=== PATIENT | male | born 1970 | race Caucasian/White ===

== ENCOUNTER → 2017-06-09 | Outpatient (CLI) | payer OTHER ==
--- NOTE | 2017-06-09 17:00 | CONS ---
CONSULTATION DATE OF SERVICE: 06/09/2017 47-year-old gentleman who has been evaluated [facility] the [facility] for difficulties to initiate sleep and multiple awakenings from sleep. HISTORY OF PRESENT ILLNESS/SLEEP WAKE EVALUATION: Patient has problem related to his sleep for many years. SLEEP SCHEDULE: Presently his sleep schedule from around 9:00 p.m. until 5 or 6:00 am. FALLING ASLEEP: The patient has problem with falling asleep. He is watching TV. If he cannot fall asleep in 1 1/2 hours he is putting TV on and watching TV. DURING SLEEP: If he is able to sleep, he wakes up from sleep up to 10 times and several times he has episodes of nocturia. He has episodes of panic attacks also. DURING THE DAY/SLEEP WAKE EVALUATION: In the morning, he wakes up tired and feels sleepy during the day. [place] Sleepiness Scale is 9 and this is with the 3 or 4 cups of coffee during the day. No history of hypnagogic hallucinations, sleep paralysis or cataplexy. PAST MEDICAL HISTORY: Positive for psoriasis. Also takes iron, history of iron deficiency anemia for 1 year. He has history of trauma in the face in 2000. PAST SURGICAL HISTORY: Multiple facial surgeries after trauma in 2000, gastric bypass surgery, cervical disc fusion C5-C6 and surgery for carpal tunnel syndrome, bilateral. MEDICATIONS: Folic acid, ferrous sulfate, Singulair, Pristiq, gabapentin. SOCIAL HISTORY: Positive for smoking for about on and off 10 years, 1 pack a day. Presently, the patient smokes for last 3 years. Alcohol consumption none. FAMILY HISTORY: Hypertension, heart problems, fibromyalgia, arthritis, asthma, insomnia, anemia. REVIEW OF SYMPTOMS: Multiple awakenings from sleep. Difficulties to initiate sleep, itching of the arms and head. PHYSICAL EXAM: gentleman without distress, BP 127/87, HR 73, RR 16, height 5 feet 9 inches, weight 215.6, BMI 31.7, temperature 97.9. Oxygen saturation room air 95%. During physical exam, some asymmetry of the face after face surgeries secondary to trauma. Scratching of the skin on the head and arms. Oropharynx small oropharyngeal air space, low position of soft palate, wide pillars. Some restriction of nasal breathing. Abdomen slightly obese. Neck Supple, no JVD. Thyroid is not palpable. LUNGS Clear to percussion and to auscultation. Good air exchange. No wheezing or rhonchi. HEART S1, S2 regular. No murmurs, gallops, or rubs. ABDOMEN: Obese. Soft and nontender. Bowel sounds are present. No organomegaly appreciated. EXTREMITIES No clubbing or cyanosis. SOD STRIPPER Awake, alert, and oriented X3. Cranial nerves 2 to 7 intact. There is no fasciculation or atrophy. noted. No focal deficits observed. IMPRESSION: 1. Multiple awakenings from sleep with nocturia. Low position of soft palate. Restriction of nasal breathing, obstructive sleep apnea/hypopneas and a wide neck 17 and 0.5 inches daytime sleepiness, obstructive sleep apnea-hypopnea syndrome. 2. Difficulties to initiate sleep. Psychophysiological insomnia. 3. History of iron deficiency anemia. 4. History of psoriasis. 5. Obesity BMI 31.7. 6. Problem with the right hip, preparing for a right hip total replacement. 7. Status post gastric bypass surgery. 8. Status post cervical disc fusion in the level of C5-C6. 9. Status post carpal tunnel syndrome treatment to both hands. PLAN: 1. Polysomnography for evaluation of patient's breathing during sleep. 2. CPAP/BiPAP titration if sleep study confirms obstructive sleep apnea-hypopnea syndrome. 3. Preferable position during sleep on the side. 4. No driving if patient feels any sleepiness. Patient is aware of civil and criminal liability for unsafe driving. 5. I will see patient for follow up visit to explain results of testing and following plan. 6. Psychophysiological techniques for treatment of insomnia stimulus control, paradoxical intention, worry time, exposure to as much as possible bright light in the morning and no bright light in the evening. Thank you very much for referring this patient for consultation. Sincerely, Rolando Guillory MD, PhD, FAASM Diplomat of [place] [employer] [place] [employer] Alum Operator of [facility] [place] MMODL / IJN: [id number] /
== END | disposition home or self-care (01) ==
LOC: SLEEP 14:44
PROVIDERS: ATTEND Internal Medicine
DX: G47.33 Obstructive sleep apnea (adult) (pediatric) (principal); F51.04 Psychophysiologic insomnia; E66.9 Obesity, unspecified; Z86.2 Personal history of diseases of the blood and blood-forming organs and certain disorders involving the immune mechanism; Z87.2 Personal history of diseases of the skin and subcutaneous tissue; Z68.31 Body mass index [BMI] 31.0-31.9, adult; Z98.84 Bariatric surgery status; Z98.1 Arthrodesis status; Z86.69 Personal history of other diseases of the nervous system and sense organs; Z87.891 Personal history of nicotine dependence; Z79.899 Other long term (current) drug therapy
CPT/HCPCS: 99211

== ENCOUNTER → 2017-06-22 | Outpatient (CLI) | payer OTHER ==
[2017-06-22 12:03] LABS: INR 1.1 (<1.2); Partial Thromboplastin Time 25.8 sec (22.0-30.0); Prothrombin Time 10.5 sec (9.0-12.0)
[2017-06-22 12:05] LABS: Anisocytosis Slight; HCT 50.5 % (39.0-53.0); HGB 16.4 gm/dL (13.0-17.5); MCH 26.8 pg (25.0-35.0); MCHC 32.4 g/dL (31.0-37.0); MCV 82.9 fL (80.0-100.0); Mean Platelet Volume 7.5; Microcytosis Slight; Platelet Count 234 k/uL (150-450); RDW 17.1 % (11.5-15.5); WBC 8.4 k/uL (3.8-10.6)
[2017-06-22 12:06] LABS: ALT 29 U/L (21-72); AST 28 U/L (17-59); Albumin 4.3 g/dL (3.5-5.0); Alkaline Phosphatase 108 U/L (38-126); Anion Gap 10 mmol/L; Blood Urea Nitrogen 15 mg/dL (9-20); Calcium 9.5 mg/dL (8.4-10.2); Carbon Dioxide 24 mmol/L (22-30); Chloride 109 mmol/L (98-107); Glucose 98 mg/dL (74-99); Potassium 4.5 mmol/L (3.5-5.1); Sodium 143 mmol/L (137-145); Total Bilirubin 0.5 mg/dL (0.2-1.3); Total Protein 7.5 g/dL (6.3-8.2)
== END | disposition home or self-care (01) ==
LOC: LABPAT 11:14
PROVIDERS: ATTEND Orthopaedic Surgery
DX: Z01.812 Encounter for preprocedural laboratory examination (principal)
CPT/HCPCS: 36415; 80053; 85027; 85610; 85730; 87070

== ENCOUNTER 2017-07-05 09:31 | Inpatient (IN) | payer OTHER ==
[2017-06-30 09:47] VITALS: BMI 30.1
[~2017-07-05 09:31] MED LIST: ACETAMINOPHEN TAB 500 MG TAB PO ONE; DEXAMETHASONE SOD PHOSPHATE 10 MG/ML 1 ML VIAL IV ONE; LIDOCAINE 1% 20 ML VIAL (10MG/ML) FOR IV START INTRADERMA PRN; MELOXICAM 7.5 MG TAB PO ONE; MIDAZOLAM 2 MG/2 ML VIAL IV PRN; ONDANSETRON 4 MG/2 ML VIAL IVP ONE; SCOPOLAMINE 1.5MG/72HR PATCH TRANSDERM ONE; TRANEXAMIC ACID 1,000 MG in SODIUM CHLORIDE 0.9% 50 ML IVPB ONE; ceFAZolin IN SWFI 2 GM/20 ML SYRINGE IVP ONE
[2017-07-05] MEDS ORDERED: LIDOCAINE 1% 20 ML VIAL (10MG/ML) FOR IV START INTRADERMA ONE (10:31)
[2017-07-05] MEDS: LACTATED RINGERS 1,000 ML IV SCH (10:31)
[2017-07-05] MEDS ORDERED: DIAZEPAM 5 MG TAB PO PRN (11:46)
[2017-07-05] MEDS ORDERED: ONDANSETRON 4 MG/2 ML VIAL IVP PRN (11:46)
[2017-07-05] MEDS ORDERED: MORPHINE SULFATE 4 MG/ML SYRINGE IVP PRN ×3 (11:46)
[2017-07-05] MEDS ORDERED: NALOXONE 0.4 MG/ML 1 ML VIAL IV PRN (11:46)
[2017-07-05] MEDS ORDERED: HYDROcodone/APAP 7.5-325MG 1 EACH TAB PO PRN (11:46)
[2017-07-05] MEDS ORDERED: MAGNESIUM HYDROXIDE 2,400 MG/10 ML CUP PO PRN (11:46)
[2017-07-05] MEDS ORDERED: MIDAZOLAM 2 MG/2 ML VIAL ONE (11:54)
[2017-07-05] MEDS ORDERED: LIDOCAINE 1% INJ 10MG/ML (20 ML MDV) ONE (11:54)
[2017-07-05] MEDS ORDERED: diphenhydrAMINE 50 MG/ML 1 ML VIAL ONE (11:54)
[2017-07-05] MEDS ORDERED: PROPOFOL 10 MG/ML 20 ML VIAL IV ONE (11:54)
[2017-07-05] MEDS ORDERED: fentaNYL (PF) 50 MCG/ML 2 ML AMP ONE (11:54)
[2017-07-05] MEDS ORDERED: HEPARIN SODIUM,PORCINE 10,000 UNIT/ML 1 ML VIAL ONE (11:54)
[2017-07-05] MEDS ORDERED: LACTATED RINGERS 1,000 ML BAG IV ONE (11:54)
[2017-07-05] MEDS: ROPIVACAINE 246.25 MG, EPINEPHrine 0.5 MG, KETOROLAC 30 MG, cloNIDine HCL/PF 80 MCG, WA... MISCELLANE ONE ×10 (12:21→13:16)
[2017-07-05] MEDS ORDERED: ceFAZolin 3,000 MG in SODIUM CHLORIDE 0.9% IRRIGATIO 3,000 ML IRRIGATION ONE (12:21)
[2017-07-05] MEDS ORDERED: LACTATED RINGERS 1,000 ML IV ONE ×2 (12:49→18:07)
--- NOTE | 2017-07-05 13:31 | P.OP ---
Date of Procedure: 07/05/17 Preoperative Diagnosis: Severe osteoarthritis right hip Postoperative Diagnosis: Severe osteoarthritis right hip Procedure(s) Performed: Right total hip arthroplasty with a direct anterior approach Implants: Jacobs and nephew Polarstem size 9 standard Jacobs [employer] Nephew R3, 3 hole acetabular shell, 58 mm Jacobs [employer] Nephew reflection 6.5 mm cancellus screw, 20 mm 2 Jacobs [employer]hew R3, XLPE 20 acetabular liner Jacobs & Nephew Oxinium femoral head 36 m, +12 All components were press-fit. The articulation is Oxinium on polyethylene. Anesthesia: spinal Surgeon: Chris Velasquez Showroom Sales Assistant #1: Neena Gregory Estimated Blood Loss (ml): 250 (125 mL returned with Cell Saver) Pathology: other (Femoral head) Condition: stable Disposition: PACU Indications for Procedure: After failure of conservative treatment we discussed the surgical and nonsurgical treatment options at length. Patient wishes to proceed with a total hip arthroplasty with a direct anterior approach. Complications specific to this procedure were discussed at length, including but not limited to infection, leg length discrepancy, dislocation, and nerve injury. Patient is aware of all these complications and informed consent was obtained Operative Findings: The operative findings are consistent with severe osteoarthritis of the right hip Description of Procedure: Patient was seen and evaluated in the preoperative area, consent was reviewed, and the surgical site was marked with a skin marker. Patient was then brought to the operating room and given prophylactic antibiotics intravenously. 1 g of Tranexamic acid was also given. A spinal anesthetic was administered by the anesthesia department. The patient was then placed on the [place] table with the bony prominences well-padded. The hip area was then prepped and draped in usual sterile fashion. A universal timeout was then performed, which confirmed the patient's name, surgical site, ALLERGIES, and procedure being performed. Next the incision site was located at 1 cm distal and 1 cm lateral to the anterior superior iliac spine. The skin and subcutaneous tissues were sharply incised. Incision was carefully dissected down to the fascia overlying the tensor fascia jud muscle. This fascia was then incised in line with the incision. Next, using blunt finger dissection, the tensor fascia jud muscle was dissected off its investing fascia. The muscle was then carefully retracted laterally with a cobra retractor over the lateral neck of the femur. Next, the circumflex vessels were identified and cauterized using the AquaMantis device. The anterior hip capsule was then exposed. The capsule was then opened and an inverted T fashion. Cobra retractors were then placed intracapsularly. The proximal femur was then visualized. The femoral neck was then osteotomized appropriate level above the lesser trochanter. Small amount of traction was placed with the [place] table. A small wedge of bone was then removed from the remaining femoral head. Next, using a corkscrew femoral head was easily removed from the acetabulum. On gross visual inspection, the femoral head had complete loss of articular cartilage in multiple periarticular osteophytes. Attention was then turned to the acetabulum. the acetabulum was exposed and any remaining labrum was excised. Sequential reaming of the acetabulum was performed using fluoroscopic guidance. When the appropriate size was reached, a trial was then placed. The position and fit of the trial was checked with fluoroscopy. The trial was then removed. Then, using fluoroscopic guidance, the final implant was impacted at 20 of anteversion and 40 of abduction, and fully seated in the acetabulum. 2 screws were then placed in the acetabulum. Again fluoroscopy was used to check position of the screws. Next, the liner was then impacted, with a 20 elevated liner located in the anterior superior quadrant. Component locking was confirmed. Attention was then directed to the femur. With the aid of the [place] table, the femur was externally rotated to approximately 130, extended, and abducted under the opposite leg. A side hook was then placed under the proximal femur, and the side hook elevator was used to elevate the proximal femur. Retractors were then placed. A capsular release was performed, as well as a release of the conjoined tendon, which afforded excellent visualization of the proximal femur. Next, a box osteotome was used to lateralize the proximal femur. A drapery sewer hand was then used to locate the femoral canal. Sequential broaching was then performed with appropriate size which afforded excellent fixation in the proximal femur. A trial was then placed with appropriate head and neck, and the hip was gently reduced with the aid of the [place] table. Fluoroscopy was then used to check position of the components, as well as to ensure equal leg lengths. The hip was then gently dislocated and the trials were then removed. Final implants were then impacted and the hip was again reduced. Final fluoroscopic x-rays confirmed that the components were in anatomic position, as well as equal leg lengths. The hip was also taken through range of motion, and found to be stable. The hip was then copiously irrigated with antibiotic solution with pulsatile lavage. The hip was then irrigated with Irrisept solution. The soft tissues were then injected with a ropivacaine solution, which consisted of 246.25 mg of ropivacaine, 0.5 mg of epinephrine, 30 mg of Toradol, 80 g of clonidine, and 48.45 mL of sterile water, for a total of 100 mL of fluid injected. A second dose of 1 g of Tranexamic acid was also given. the fascia was then closed with 2-0 strata fix suture. The subcutaneous tissue was closed with 3-0 Vicryl. The subcuticular tissue was closed with 3-0 strata fix suture. The skin was then closed with Dermabond glue and a sterile silver dressing. The patient was then transferred to the recovery room in stable condition. The mobile sales assistant ANTIONETTE Osorio was required due to the complexity of surgery, and the need for skilled surgical dental assistant for positioning, draping, exposure, retraction, and closure of the wound.
--- NOTE | 2017-07-05 13:59 | XR ---
EXAMINATION TYPE: XR Hip Limited RT DATE OF EXAM: 07/05/2017 COMPARISON: NONE HISTORY: Postop TECHNIQUE: One view submitted. FINDINGS: There is a prosthetic hip in near anatomic alignment. There is soft tissue edema and emphysema. IMPRESSION: 1. Postoperative change. Appears in near-anatomic alignment.
--- NOTE | 2017-07-05 14:03 | FL ---
EXAMINATION TYPE: FL guidance operating room DATE OF EXAM: 07/05/2017 HISTORY: Flouroscopy time 1 minute and 17 seconds of fluoroscopy provided. IMPRESSION: 1. Fluoroscopy time.
[2017-07-05] MEDS: MORPHINE SULFATE 4 MG/ML SYRINGE IV PRN ×4 (15:43→18:27)
--- NOTE | 2017-07-05 18:11 | XR ---
EXAMINATION TYPE: XR Hip Limited RT DATE OF EXAM: 07/05/2017 COMPARISON: NONE HISTORY: Hip surgery TECHNIQUE: Single view FINDINGS: There is a right hip prosthesis. Components appear in anatomic position. I see no complicat ing process. IMPRESSION: New right hip prosthesis.
[2017-07-05] MEDS: hydrOXYzine PAMOATE 25 MG CAP PO PRN (21:03)
[2017-07-05] MEDS: HYDROcodone/APAP 7.5-325MG 1 EACH TAB PO PRN (21:03)
[2017-07-05] MEDS: ceFAZolin IN SWFI 2 GM/20 ML SYRINGE IVP SCH (21:05)
[2017-07-05] MEDS: ASPIRIN 325 MG TAB PO SCH (21:06)
[2017-07-05] MEDS: SODIUM CHLORIDE 0.9% 1,000 ML IV SCH (21:08)
[2017-07-05] MEDS: SENNOSIDES-DOCUSATE SODIUM 1 EACH TAB PO SCH (22:20)
[2017-07-05] MEDS ORDERED: ALBUTEROL NEBULIZED 2.5 MG/3 ML INHALATION PRN (23:09)
[2017-07-05] MEDS: ZOLPIDEM 10 MG TAB PO SCH (23:31)
[2017-07-06] MEDS: MIRTAZAPINE 15 MG TAB PO SCH ×2 (00:47→20:21)
[2017-07-06] MEDS: SODIUM CHLORIDE 0.9% 1,000 ML IV SCH ×2 (03:39→21:12)
[2017-07-06] MEDS: ceFAZolin IN SWFI 2 GM/20 ML SYRINGE IVP SCH (03:40)
[2017-07-06] MEDS: hydrOXYzine PAMOATE 25 MG CAP PO PRN ×2 (03:42→10:17)
[2017-07-06] MEDS: HYDROcodone/APAP 7.5-325MG 1 EACH TAB PO PRN ×4 (03:43→20:24)
[2017-07-06] MEDS: LACTATED RINGERS 1,000 ML IV SCH ×2 (04:01→22:07)
[2017-07-06] MEDS: DIAZEPAM 5 MG TAB PO PRN ×2 (07:34→15:35)
[2017-07-06] MEDS: ASPIRIN 325 MG TAB PO SCH ×2 (07:35→20:20)
[2017-07-06] MEDS: DESVENLAFAXINE SUCCINATE 50 MG TAB.ER.24H PO SCH (07:35)
[2017-07-06] MEDS: FOLIC ACID 1 MG TAB PO SCH ×2 (07:36→20:20)
[2017-07-06] MEDS: FERROUS SULFATE 325 MG TAB PO SCH ×2 (07:36→20:20)
[2017-07-06] MEDS: GABAPENTIN 400 MG CAP PO SCH ×3 (07:36→20:21)
[2017-07-06] MEDS: MELOXICAM 7.5 MG TAB PO SCH (07:36)
[2017-07-06] MEDS: MULTIVITAMINS, THERA 1 EACH TAB PO SCH (07:38)
[2017-07-06 07:52] LABS: Anisocytosis Slight; Basophils % (A) 0 %; Eosinophils # (A) 0.1 k/uL (0-0.7); Eosinophils % (A) 1 %; HCT 41.7 % (39.0-53.0); Lymphocytes # (A) 1.5 k/uL (1.0-4.8); Lymphocytes % (A) 12 %; MCH 27.8 pg (25.0-35.0); MCHC 33.1 g/dL (31.0-37.0); Mean Platelet Volume 7.6; Monocytes # (A) 0.6 k/uL (0-1.0); Monocytes % (A) 5 %; Neutrophils # (A) 10.2 k/uL (1.3-7.7); Neutrophils % (A) 82 %; Platelet Count 190 k/uL (150-450); RBC 4.97 m/uL (4.30-5.90); RDW 16.2 % (11.5-15.5); WBC 12.5 k/uL (3.8-10.6)
[2017-07-06 08:02] LABS: HGB 13.8 gm/dL (13.0-17.5)
--- NOTE | 2017-07-06 08:30 | P.PN ---
Subjective Progress Note Date: 07/06/17 This is a 47-year-old male who is status post right total hip arthroplasty. This is postoperative day #1. Patient is seen and evaluated at bedside with Dr. Chris Velasquez. Patient does complain of pain to the right hip. Patient states he has not had a chance to walk with physical therapy yet. Patient denies any fever/chills, numbness, weakness, tingling, abdominal pain, shortness of breath or chest pain. Objective - Vital Signs Vital signs: Vital Signs Temp 97.2 F L 07/05/17 23:00 Pulse 56 L 07/05/17 23:00 Resp 18 07/05/17 23:00 BP 115/56 07/05/17 23:00 Pulse Ox 95 07/05/17 23:00 Intake & Output 07/05/17 07/06/17 07/06/17 18:59 06:59 18:59 Intake Total 1901 950 Output Total 250 700 Balance 1651 250 Intake: IV 1901 Intake, IV Titration 650 Amount Sodium Chloride 0.9% 1, 650 000 ml @ 65 mls/hr IV . [id number] [facility] Rx#:[id number] Oral 300 Output: Urine 700 Estimated Blood Loss 250 - Exam Vital signs are stable. Patient is lying comfortably in bed in no acute distress and is alert and oriented 3. Calf is soft and nontender to palpation. Dressing is clean, dry, and intact. Patient has full foot and ankle motion without pain or difficulty. Neurovascular status and circulatory status are intact. - Labs CBC & Chem 7: 07/06/17 07:00 Labs: Abnormal Lab Results - Last 24 Hours (Table) 07/06/17 Range/Units 07:00 WBC 12.5 H (3.8-10.6) k/uL RDW 16.2 H (11.5-15.5) % Neutrophils # 10.2 H (1.3-7.7) k/uL Assessment and Plan (1) S/P total hip arthroplasty Current Visit: Yes Status: Acute Code(s): Z96.649 - PRESENCE OF UNSPECIFIED ARTIFICIAL HIP JOINT SNOMED Code(s): 038166802423 (2) Primary osteoarthritis of right hip Current Visit: Yes Status: Acute Code(s): M16.11 - UNILATERAL PRIMARY OSTEOARTHRITIS, RIGHT HIP SNOMED Code(s): 960336595 Plan: Continue routine postop care and pain control Continue antocoagulation Weightbearing as tolerated with a walker Leave dressing in place for 10-14 days Likely discharge to rehab Tuesday
[2017-07-06] MEDS: traMADol 50 MG TAB PO PRN ×3 (08:47→21:11)
--- NOTE | 2017-07-06 14:50 | CONS ---
CONSULTATION DATE OF CONSULTATION: 07/06/2017 REASON FOR CONSULTATION: Medical management requested by Dr. Velasquez. CONSULTATION: This is a pleasant 47-year-old patient who has undergone a right total hip arthroplasty. Had some postoperative pain in the joint. Has been out of bed for physical therapy. Did tolerate his lunch. No chest pain, no shortness of breath. No nausea, vomiting. Patient's chronic stable medical conditions include depression, anxiety, osteoarthritis in other joints including the right knee, left shoulder, insomnia, and COPD. REVIEW OF SYSTEMS: CONSTITUTIONAL: Tired. HEENT: None. RESPIRATORY: Occasional wheezing. CARDIOVASCULAR: None. GASTROINTESTINAL: None. GENITOURINARY: None. MUSCULOSKELETAL: Arthritic pain in different joints. HEMATOLOGICAL: None. LYMPHATICS: None. PSYCHIATRY: Depression, anxiety controlled. NEUROLOGICAL: Sleep disorder. PAST MEDICAL HISTORY: Depression, anxiety, osteoarthritis, insomnia, COPD. PAST SURGICAL HISTORY: Bariatric surgery, orthopedic surgery, tonsillectomy, facial reconstruction due to work accident. PSYCH HISTORY: Anxiety, depression, panic disorder. SOCIAL HISTORY: Smokes a pack a day for over 20 years. The patient is on disability. Lives with his sister. FAMILY HISTORY: Cancer, type unknown. HOME MEDICATIONS: 1. Vistaril 25 mg p.o. t.i.d. 2. Ambien 10 mg q.h.s. 3. Multivitamin tab p.o. daily. 4. Remeron 50 mg q.h.s. 5. [place] 7.5 one tablet q.6 p.r.n. 6. Neurontin 400 mg t.i.d. 7. Folic acid 1 mg b.i.d. 8. Iron 325 p.o. b.i.d. 9. Pristiq 100 mg p.o. daily. 10.Ventolin HFA 2 puffs q.6 p.r.n. ALLERGIES: SHELLFISH and TRAZODONE. PHYSICAL EXAMINATION: Temperature 96.3, pulse 76, respiration 18, blood pressure 120/60, pulse ox 96% on room air. GENERAL APPEARANCE: Average build, lying in bed, comfortable. EYES: Pupils equal, conjunctivae normal. HEENT: External nose and ear normal. Oral cavity normal. The patient has got some muscle dissymmetry, scarring on the forehead. NECK: JVD not raised. Mass not palpable. Respiratory effort normal. LUNGS: Slightly decreased breath sounds, CARDIOVASCULAR: First and second sounds are normal. No edema. ABDOMEN: Soft, nontender. Liver and spleen not palpable. LYMPHATIC: No lymph nodes palpable in neck or axillae. PSYCHIATRY: Alert and oriented x3. Mood and affect normal. NEUROLOGICAL: Pupils equal. Cranial nerves grossly intact. Power and sensation grossly intact. EXTREMITIES: Dressing over the right hip. INVESTIGATIONS: No blood work from today shows a white count of 12.5, hemoglobin 13.8. ASSESSMENT: 1. Right total hip arthroplasty. 2. Osteoarthritis probably other joints including the right knee, left shoulder, other joints. 3. Chronic insomnia, idiopathic. 4. Chronic obstructive pulmonary disease in a current smoker. 5. Depression, anxiety, not otherwise specified. 6. Chronic nicotine dependence, patient is a cigarette smoker. PLAN: Home medications are resumed. Pain control is in place. The patient will be given a nicotine patch. Patient should follow up with his family doctor upon discharge. Thank you, Dr. Velasquez. MMAURELIOL / MARIIAN: [id number] /
[2017-07-06] MEDS ORDERED: HYDROmorphone 2 MG TAB PO PRN ×2 (15:30→15:32)
[2017-07-06] MEDS ORDERED: HYDROmorphone 4 MG TABLET PO PRN (15:32)
[2017-07-06] MEDS: NICOTINE 21MG/24HR PATCH TRANSDERM SCH (18:37)
[2017-07-06] MEDS: SENNOSIDES-DOCUSATE SODIUM 1 EACH TAB PO SCH (20:21)
[2017-07-06] MEDS: ZOLPIDEM 10 MG TAB PO SCH (21:11)
[2017-07-07] MEDS: HYDROcodone/APAP 7.5-325MG 1 EACH TAB PO PRN ×4 (02:39→21:47)
[2017-07-07] MEDS: traMADol 50 MG TAB PO PRN ×3 (07:09→19:41)
[2017-07-07] MEDS: ASPIRIN 325 MG TAB PO SCH ×2 (07:24→20:28)
[2017-07-07] MEDS: DESVENLAFAXINE SUCCINATE 50 MG TAB.ER.24H PO SCH (07:24)
[2017-07-07] MEDS: MULTIVITAMINS, THERA 1 EACH TAB PO SCH (07:24)
[2017-07-07] MEDS: NICOTINE 21MG/24HR PATCH TRANSDERM SCH (07:24)
[2017-07-07] MEDS: FERROUS SULFATE 325 MG TAB PO SCH ×2 (07:24→20:28)
[2017-07-07] MEDS: FOLIC ACID 1 MG TAB PO SCH ×2 (07:25→20:28)
[2017-07-07] MEDS: SODIUM CHLORIDE 0.9% 1,000 ML IV SCH (07:25)
[2017-07-07] MEDS: MELOXICAM 7.5 MG TAB PO SCH (07:25)
--- NOTE | 2017-07-07 08:45 | P.PN ---
Subjective Progress Note Date: 07/07/17 This is a 47-year-old male who is status post right total hip arthroplasty. This is postoperative day #2. Patient states his pain is better controlled today and he has been up and walking with physical therapy. Patient denies any fever/chills, numbness, weakness, tingling, abdominal pain, shortness of breath or chest pain. Objective - Vital Signs Vital signs: Vital Signs Temp 99.6 F 07/07/17 02:51 Pulse 72 07/07/17 02:51 Resp 16 07/07/17 00:00 BP 137/66 07/07/17 02:51 Pulse Ox 97 07/07/17 02:51 Intake & Output 07/06/17 07/07/17 07/07/17 18:59 06:59 18:59 Output Total 0 Balance 0 Weight 95.254 kg Output: Stool 0 Other: # Voids 3 2 - Exam Vital signs are stable. Patient is lying comfortably in bed in no acute distress and is alert and oriented 3. Calf is soft and nontender to palpation. Dressing is clean, dry, and intact. Patient has full foot and ankle motion without pain or difficulty. Neurovascular status and circulatory status are intact. - Labs CBC & Chem 7: 07/06/17 07:00 Assessment and Plan (1) S/P total hip arthroplasty Current Visit: Yes Status: Acute Code(s): Z96.649 - PRESENCE OF UNSPECIFIED ARTIFICIAL HIP JOINT SNOMED Code(s): 616845118498 (2) Primary osteoarthritis of right hip Current Visit: Yes Status: Acute Code(s): M16.11 - UNILATERAL PRIMARY OSTEOARTHRITIS, RIGHT HIP SNOMED Code(s): 931616480 Plan: Continue routine postop care and pain control Continue antocoagulation with aspirin. Weightbearing as tolerated with a walker Leave dressing in place for 10-14 days Likely discharge to rehab Tuesday
[2017-07-07] MEDS: hydrOXYzine PAMOATE 25 MG CAP PO PRN ×2 (09:05→21:46)
[2017-07-07] MEDS: GABAPENTIN 400 MG CAP PO SCH ×3 (09:06→21:47)
--- NOTE | 2017-07-07 15:58 | PN ---
PROGRESS NOTE DATE OF SERVICE: 07/07/2017. PRESENTING COMPLAINT: Right hip surgery. INTERVAL HISTORY: The patient is status post right hip surgery. Pain is better. Tolerating a diet. No nausea, vomiting. Up with therapy. REVIEW OF SYSTEMS: Done for constitutional, cardiovascular, GI, pulmonary; relevant findings as above. CURRENT MEDICATIONS: Reviewed. PHYSICAL EXAMINATION: Temperature 98.5, pulse 82, respiration 16, blood pressure 114/62, pulse ox 98% on room air. GENERAL APPEARANCE: Sitting up, comfortable. EYES: Pupils equal. Conjunctivae normal. HEENT: External appearance of nose and ears normal. Oral cavity normal. NECK: JVD not raised. Mass not palpable. RESPIRATORY: Effort normal. LUNGS: Slightly decreased breath sounds. CARDIOVASCULAR: First and second sounds normal. No edema. ABDOMEN: Soft, nontender. Liver and spleen not palpable. PSYCHIATRY: Alert and oriented x3. Mood and affect normal. INVESTIGATIONS: Hemoglobin 13.8. ASSESSMENT: 1. Right total hip arthroplasty. 2. Primary osteoarthritis of the joints, including the right knee and left shoulder. 3. Chronic insomnia, idiopathic. 4. Chronic obstructive pulmonary disease in a current smoker. 5. Depression not otherwise specified. 6. Chronic nicotine dependence. Patient is a current cigarette smoker. PLAN: Patient is doing better. Continue current medication and treatment plan. MMODL / IJN: [id number] /
[2017-07-07] MEDS: SENNOSIDES-DOCUSATE SODIUM 1 EACH TAB PO SCH (20:28)
[2017-07-07] MEDS: MIRTAZAPINE 15 MG TAB PO SCH (20:28)
[2017-07-07] MEDS: ZOLPIDEM 10 MG TAB PO SCH (20:28)
[2017-07-08 01:00] VITALS: RESP 16
[2017-07-08] MEDS: SODIUM CHLORIDE 0.9% 1,000 ML IV SCH ×2 (03:02→19:30)
[2017-07-08] MEDS: LACTATED RINGERS 1,000 ML IV SCH (03:03)
[2017-07-08] MEDS: HYDROcodone/APAP 7.5-325MG 1 EACH TAB PO PRN ×4 (03:55→19:46)
[2017-07-08] MEDS: hydrOXYzine PAMOATE 25 MG CAP PO PRN (03:55)
[2017-07-08 07:35] LABS: Basophils % (A) 0 %; Eosinophils # (A) 0.3 k/uL (0-0.7); Eosinophils % (A) 4 %; HCT 38.5 % (39.0-53.0); HGB 12.6 gm/dL (13.0-17.5); Lymphocytes # (A) 1.6 k/uL (1.0-4.8); Lymphocytes % (A) 22 %; MCH 27.5 pg (25.0-35.0); MCHC 32.7 g/dL (31.0-37.0); MCV 83.9 fL (80.0-100.0); Mean Platelet Volume 7.3; Monocytes # (A) 0.6 k/uL (0-1.0); Monocytes % (A) 8 %; Neutrophils # (A) 4.5 k/uL (1.3-7.7); Neutrophils % (A) 64 %; Platelet Count 161 k/uL (150-450); RBC 4.59 m/uL (4.30-5.90); RDW 15.7 % (11.5-15.5)
[2017-07-08] MEDS: FERROUS SULFATE 325 MG TAB PO SCH (08:12)
[2017-07-08] MEDS: DESVENLAFAXINE SUCCINATE 50 MG TAB.ER.24H PO SCH (08:12)
[2017-07-08] MEDS: GABAPENTIN 400 MG CAP PO SCH ×2 (08:12→14:38)
[2017-07-08] MEDS: MULTIVITAMINS, THERA 1 EACH TAB PO SCH (08:12)
[2017-07-08] MEDS: ASPIRIN 325 MG TAB PO SCH (08:12)
[2017-07-08] MEDS: FOLIC ACID 1 MG TAB PO SCH (08:12)
[2017-07-08] MEDS: MELOXICAM 7.5 MG TAB PO SCH (08:13)
[2017-07-08] MEDS: NICOTINE 21MG/24HR PATCH TRANSDERM SCH (08:13)
--- NOTE | 2017-07-08 08:36 | P.DS ---
Providers Date of admission: 07/05/17 09:31 Expected date of discharge: 07/08/17 Attending physician: Chris Velasquez Consults: 07/05/17 11:46 Consult Physician Routine Consulting Provider: Crescencio Barrientos Consult Reason/Comments: medical management Do you want consulting provider notified?: Yes Primary care physician: Salvatore Whalen - Discharge Diagnosis(es) (1) S/P total hip arthroplasty Current Visit: Yes Status: Acute (2) Primary osteoarthritis of right hip Current Visit: Yes Status: Acute Hospital Course: This is a 47-year-old male with known history of degenerative arthritis of the right hip. The patient presents for evaluation. After discussion and consideration patient elects to proceed with total hip arthroplasty. The patient is seen preoperatively by Dr. Velasquez and medically cleared for surgery by their primary care physician. Patient is admitted to [facility] on 07/05/2017 for total hip arthroplasty. The procedures performed without complication or sequelae. The patient is doing well postoperatively. Labs and vital signs are stable on day of discharge. On day of discharge patient's hip incision is healing well. There is minimal erythema. There is no drainage noted at this time. There is minimal soft tissue swelling to the hip and thigh. Patient has full foot and ankle motion without difficulty or pain. Neurovascular status to the right lower extremity is intact. Patient is discharged to rehab in good condition. Please see med rec for accurate list of home medications. Plan - Discharge Summary Discharge Rx Participant: Yes New Discharge Prescriptions: New Aspirin 325 mg PO BID #60 tab HYDROcodone/APAP 7.5-325MG [[place] 7.5-325] 1 - 2 tab PO Q4-6H PRN #90 tab PRN Reason: Pain Sennosides [Senokot] 1 tab PO BID #60 tablet traMADol HCl [Ultram] 50 mg PO Q6H PRN #60 tab PRN Reason: Pain No Action HYDROcodone/APAP 7.5-325MG [[place] 7.5-325] 1 tab PO Q6HR PRN PRN Reason: Pain Folic Acid 1 mg PO BID Albuterol Inhaler [Ventolin Hfa Inhaler] 2 puff INHALATION RT-Q6H PRN PRN Reason: Shortness Of Breath hydrOXYzine PAMOATE [Vistaril] 25 mg PO TID Ferrous Sulfate [Feosol] 325 mg PO BID Mirtazapine [Remeron] 15 mg PO HS Gabapentin [Neurontin] 400 mg PO TID Zolpidem Tartrate [Ambien] 10 mg PO HS Multivitamins, Thera [Multivitamin (formulary)] 1 tab PO DAILY Desvenlafaxine Succinate [Pristiq] 100 mg PO DAILY Discharge Medication List Albuterol Inhaler [Ventolin Hfa Inhaler] 2 puff INHALATION RT-Q6H PRN 06/30/17 [ History] Desvenlafaxine Succinate [Pristiq] 100 mg PO DAILY 06/30/17 [History] Ferrous Sulfate [Feosol] 325 mg PO BID 06/30/17 [History] Folic Acid 1 mg PO BID 06/30/17 [History] Gabapentin [Neurontin] 400 mg PO TID 06/30/17 [History] HYDROcodone/APAP 7.5-325MG [[place] 7.5-325] 1 tab PO Q6HR PRN 06/30/17 [History] Mirtazapine [Remeron] 15 mg PO HS 06/30/17 [History] Multivitamins, Thera [Multivitamin (formulary)] 1 tab PO DAILY 06/30/17 [History ] Zolpidem Tartrate [Ambien] 10 mg PO HS 06/30/17 [History] hydrOXYzine PAMOATE [Vistaril] 25 mg PO TID 06/30/17 [History] Aspirin 325 mg PO BID #60 tab 07/08/17 [Rx] HYDROcodone/APAP 7.5-325MG [[place] 7.5-325] 1 - 2 tab PO Q4-6H PRN #90 tab [Rx] Sennosides [Senokot] 1 tab PO BID #60 tablet 07/08/17 [Rx] traMADol HCl [Ultram] 50 mg PO Q6H PRN #60 tab 07/08/17 [Rx] Follow up Appointment(s)/Referral(s): Chris Velasquez DO [Doctor of Osteopathic Medicine] - 2 Weeks Activity/Diet/Wound Care/Special Instructions: Weightbearing as tolerated with walker Leave dressing intact. Dressing may be removed by home care nurse in 10-14 days. May shower with dressing on. Follow-up with [facility] in 2 weeks, please call with any questions or concerns [phone] Discharge Disposition: TRANSFER TO SNF/ECF
[2017-07-08 15:28] VITALS: BP 128/76; PULSE 72; TEMP 97.5
--- NOTE | 2017-07-08 15:58 | PN ---
PROGRESS NOTE DATE OF SERVICE: 07/08/2017 PRESENTING COMPLAINT: Right hip surgery. INTERVAL HISTORY: Patient is status post right hip surgery. Pain is much improved. Did work with Therapy. No nausea or vomiting. Did tolerate a diet. Sitting up in a chair, comfortable. REVIEW OF SYSTEMS: Done for constitutional, cardiovascular, GI, pulmonary; relevant findings as above. CURRENT MEDICATIONS: Reviewed. PHYSICAL EXAMINATION: Temperature 97.6, pulse 72, respiration 16, blood pressure 126/75, pulse ox 97% on room air. GENERAL APPEARANCE: Sitting up in a chair, comfortable. EYES: Pupils equal. Conjunctivae normal. HEENT: External appearance of nose and ears normal. Oral cavity normal. NECK: JVD not raised. Mass not palpable. RESPIRATORY: Effort normal. LUNGS: Slightly decreased breath sounds. CARDIOVASCULAR: First and second sounds normal. No edema. ABDOMEN: Soft, nontender. Liver and spleen not palpable. PSYCHIATRY: Alert and oriented x3. Mood and affect normal. INVESTIGATIONS: Hemoglobin 12.6, white count 7. ASSESSMENT: 1. Right total hip arthroplasty. 2. Primary osteoarthritis of the right knee and left shoulder. 3. Chronic insomnia, idiopathic. 4. Chronic obstructive pulmonary disease in a current smoker. 5. Depression not otherwise specified. 6. Chronic nicotine dependence. Patient is a current cigarette smoker. PLAN: Patient is doing well. Continue current medication and treatment plan. If discharged, should follow up with her family doctor. MMODL / IJN: [id number] /
[2017-07-08] MEDS: traMADol 50 MG TAB PO PRN (19:09)
== END 2017-07-08 20:00 | DRG 470 ==
LOC: 2ORMAIN 09:31 → 3SUR 20:23
PROVIDERS: ADMIT Orthopaedic Surgery; ATTEND Orthopaedic Surgery
PROC: 30233N0 Transfusion of Autologous Red Blood Cells into Peripheral Vein, Percutaneous Approach (ICD-10-PCS; 2017-07-05)
PROC: 0SR906A Replacement of Right Hip Joint with Oxidized Zirconium on Polyethylene Synthetic Substitute, Uncemented, Open Approach (ICD-10-PCS; principal; 2017-07-05 11:30)
DX: M16.11 Unilateral primary osteoarthritis, right hip (principal); F10.11 Alcohol abuse, in remission; F17.210 Nicotine dependence, cigarettes, uncomplicated; I10 Essential (primary) hypertension; F32.9 Major depressive disorder, single episode, unspecified; F41.9 Anxiety disorder, unspecified; M17.11 Unilateral primary osteoarthritis, right knee; M19.012 Primary osteoarthritis, left shoulder; F51.01 Primary insomnia; J44.9 Chronic obstructive pulmonary disease, unspecified; Z79.899 Other long term (current) drug therapy; Z98.1 Arthrodesis status; Z98.84 Bariatric surgery status; Z88.8 Allergy status to other drugs, medicaments and biological substances; Z91.013 Allergy to seafood
CPT/HCPCS: 36415; 73501; 85025; 86850; 86891; 86900; 86901; 88300; 94640

== ENCOUNTER → 2017-12-29 | Outpatient (CLI) | payer OTHER ==
--- NOTE | 2017-12-29 12:18 | SFUN ---
SLEEP CENTER FOLLOW UP NOTE DATE OF SERVICE: 12/29/2017 A 47-year-old gentleman who has been followed in the Sleep Center to discuss results of the sleep studies and following plan. Patient continued to have difficulties with falling asleep at home, cannot fall asleep without taking Ambien at 10 mg. Recently, we did polysomnogram because of possibility of obstructive sleep apnea- hypopnea syndrome. Sleep study showed very minimal abnormalities of respiration with total apnea-hypopnea index only 3.8, which is normal range. Showed sleep latency during the sleep test. Patient did take his medication before the sleep test. Allergy to TRAZODONE. Usually no sleepiness during the day. Today patient feels a little bit more sleepy because he did not sleep well last night. [place] Sleepiness Scale is 13. MEDICATIONS: The same which is Singulair, Pristiq, gabapentin, folic acid, furosemide, and Ambien. PHYSICAL EXAM: Patient in no distress. BP 142/89, HR 69, RR 16, height 69, weight 222.6, body mass index 32.7, temperature 97.5, oxygen saturation at room air 100%. OROPHARYNX: Low position of soft palate, some scratches on the head. Some signs of dermatitis on the skin. Neck Supple, no JVD. Thyroid is not palpable. LUNGS Clear to percussion and to auscultation. Good air exchange. No wheezing or rhonchi. HEART S1, S2 regular. No murmurs, gallops, or rubs. ABDOMEN Soft and nontender. Bowel sounds are present. No organomegaly appreciated. EXTREMITIES No clubbing or cyanosis. SALVAGE WINDER Awake, alert, and oriented X3. Cranial nerves 2 to 7 intact. There is no fasciculation or atrophy. noted. No focal deficits observed. IMPRESSION: 1. No significant respiratory abnormalities during the sleep study. 2. Insomnia with difficulties to initiate sleep at home. Normal sleep with the usage of Ambien at 10 mg. 3. History of psoriasis. 4. Status post face trauma and several plastic surgeries of the face. 5. Status post right hip replacement in June of 2017. 6. Status post gastric bypass surgery. 7. Status post cervical disc fusion, level C5-C6. 8. Status post carpal tunnel syndrome treatment for both hands. PLAN: 1. Patient will continue to take Ambien at 10 mg at bedtime. 2. Sleep hygiene with regular time in bed for at least 7.5 hours. 3. Psychological technique for treatment of insomnia should include stimulus control, paradoxical intention, worry time, no watching clock at night. 4. Preferable position during the sleep on the side and slightly up. 5. No driving if feeling sleepiness. Thank you very much for allowing me to participate in the management of your patient. Sincerely, Rolando Guillory MD, PhD, FAASM Diplomat of [employer] Clerk of [facility] [place] MMODL / IJN: [id number] /
== END | disposition home or self-care (01) ==
LOC: SLEEP 10:53
PROVIDERS: ATTEND Internal Medicine
DX: G47.00 Insomnia, unspecified (principal); Z79.899 Other long term (current) drug therapy; Z87.2 Personal history of diseases of the skin and subcutaneous tissue; Z96.641 Presence of right artificial hip joint; Z98.84 Bariatric surgery status; Z98.1 Arthrodesis status; Z98.890 Other specified postprocedural states; Z87.828 Personal history of other (healed) physical injury and trauma; Z88.8 Allergy status to other drugs, medicaments and biological substances

== ENCOUNTER → 2018-07-27 | Outpatient (CLI) | payer OTHER ==
--- NOTE | 2018-07-27 12:06 | SFUN ---
SLEEP CENTER FOLLOW UP NOTE DATE OF SERVICE: 07/27/2018 A 48-year-old gentleman who has been followed in sleep center for treatment of insomnia. The patient is on treatment with Ambien 10 mg at bedtime. With that medication he is able to fall asleep and able to sleep during the night. He was tried on doxepin and Remeron by his psychiatrist with a goal to help him to sleep, but medication did not work for him and he continued to have problem with falling asleep while he takes this medication without Ambien. We also tried lower dose of Ambien 5 mg, but it did not work for the patient. On Ambien, he does not have any side effects nor any episodes of sleep walking, no episodes of sleep eating, no problem in the morning after he wakes up. [place] Sleepiness Scale is 16. Sometimes he may feel a little bit sleepiness during the day according to patient. MEDICATIONS: Singulair, Pristiq, gabapentin, folic acid, furosemide, Ambien, Effexor 150 mg once a day. PHYSICAL EXAMINATION: During physical exam, patient in no distress. VITAL SIGNS: BP 102/60, HR 52, RR 16, height 5 feet and 9 inches, weight 243 pounds, body mass index 35.8, temperature 97.9, oxygen saturation at room air 99%. HEENT: PERRLA, EOMI. Oropharynx low position of soft palate. Some asymmetry of the face, status post several plastic surgeries. NECK: Supple, no JVD. Thyroid is not palpable. LUNGS: Clear to percussion and to auscultation. Good air exchange. No wheezing or rhonchi. HEART: S1, S2 regular. No murmurs, gallops, or rubs. ABDOMEN: Slightly obese. EXTREMITIES: No clubbing or cyanosis. PAPER REWINDER: Awake, alert, and oriented X3. Cranial nerves 2 to 7 intact. There is no fasciculation or atrophy. noted. No focal deficits observed. IMPRESSION: 1. Insomnia psychophysiological and possibly related to psychiatric conditions, on control with Ambien, no any side effects from the Ambien, without Ambien patient cannot sleep well. 2. History of depression. 3. History of anxiety. 4. History of panic disorder. 5. Status post face surgery and several plastic surgeries in 2000. 6. Status post face trauma and several plastic surgeries. 7. History of psoriasis. 8. Status post right hip replacement in June of 2017. 9. Status post gastric bypass surgery. 10.Status post cervical disc fusion at level C5-C6. 11.Status post surgical treatment for carpal tunnel syndrome bilaterally. PLAN: 1. Patient will continue to take Ambien 10 mg at bedtime. 2. Sleep hygiene with regular time in bed for 7-1/2 to 8 hours. 3. Precautions related to driving. No driving if feeling any sleepiness. 4. Watching and losing weight. 5. Preferable position during the sleep on the side. Thank you very much for allowing me to participate in management of your patient. Sincerely, Rolando Guillory MD, PhD, FAASM Diplomat of [employer] Supervisor [employer] of [facility] [place] MMODL / IJN: [id number] /
== END ==
LOC: SLEEP 10:13
PROVIDERS: ATTEND Internal Medicine
DX: G47.00 Insomnia, unspecified (principal); F32.9 Major depressive disorder, single episode, unspecified; F41.9 Anxiety disorder, unspecified; F41.0 Panic disorder [episodic paroxysmal anxiety]; L40.9 Psoriasis, unspecified; Z96.641 Presence of right artificial hip joint; Z98.890 Other specified postprocedural states; Z98.1 Arthrodesis status; Z79.899 Other long term (current) drug therapy

== ENCOUNTER 2018-08-02 04:00 | Emergency (ER) | payer OTHER ==
--- NOTE | 2018-08-02 05:05 | ED ---
General Adult HPI - General Chief complaint: Psychiatric Symptoms Stated complaint: Detox Time Seen by Provider: 08/02/18 04:15 Source: patient Mode of arrival: ambulatory Limitations: no limitations - History of Present Illness Initial comments: This patient's 48-year-old man who presents he states to have some help in stopping drinking alcohol. Patient states that he had been clean from alcohol for approximately 16 months and then he started drinking again recently. He states that he is now drinking approximately pint of alcohol and if he stops she feels shaky so he does drink again. The patient states he is denying suicidal ideation, homicidal ideation, or hallucinations. Denies any pain or dyspnea. -: days(s) Severity scale (1-10): 0 Consistency: constant Improves with: none Worsens with: none Associated Symptoms: other (Feel shaky) Treatments Prior to Arrival: none - Related Data Home Medications Medication Instructions Recorded Confirmed Albuterol Inhaler [Ventolin Hfa 2 puff INHALATION RT-Q6H PRN 06/30/17 07/05/17 Inhaler] Desvenlafaxine Succinate [Pristiq] 100 mg PO DAILY 06/30/17 07/05/17 Ferrous Sulfate [Iron (65 MG 325 mg PO BID 06/30/17 07/05/17 Elemental)] Folic Acid 1 mg PO BID 06/30/17 07/05/17 Multivitamins, Thera [Multivitamin 1 tab PO DAILY 06/30/17 07/05/17 (formulary)] hydrOXYzine PAMOATE [Vistaril] 25 mg PO TID 06/30/17 07/05/17 Previous Rx's Medication Instructions Recorded Aspirin 325 mg PO BID #60 tab 07/08/17 Gabapentin [Neurontin] 400 mg PO TID #20 cap 07/08/17 Mirtazapine [Remeron] 15 mg PO HS #10 tab 07/08/17 Nicotine 21Mg/24Hr Patch [Habitrol] 1 patch TRANSDERM DAILY #30 patch 07/08/17 Sennosides [Senokot] 1 tab PO BID #60 tablet 07/08/17 Zolpidem Tartrate [Ambien] 10 mg PO HS #10 tablet 07/08/17 traMADol HCl [Ultram] 50 mg PO Q6H PRN #60 tab 07/08/17 LORazepam [Ativan] 1 mg PO BID 3 Days #6 tab 08/02/18 Allergies Allergy/AdvReac Type Severity Reaction Status Date / Time shellfish derived [Shrimp] Allergy HIVES, Verified 08/02/18 04:10 SWELLING trazodone AdvReac PRIAPISM Verified 08/02/18 04:10 Review of Systems ROS Statement: Those systems with pertinent positive or pertinent negative responses have been documented in the HPI. ROS Other: All systems not noted in ROS Statement are negative. Constitutional: Denies: fever, chills Eyes: Denies: vision change Respiratory: Denies: cough, dyspnea Cardiovascular: Denies: chest pain, palpitations Gastrointestinal: Denies: abdominal pain, vomiting Musculoskeletal: Denies: back pain Neurological: Denies: headache Psychiatric: Reports: anxiety. Denies: auditory hallucinations, visual hallucinations, homicidal thoughts, suicidal thoughts Past Medical History Past Medical History: Osteoarthritis (OA) Additional Past Medical History / Comment(s): SEASONAL ALLERGIES. LOW IRON History of Any Multi-Drug Resistant Organisms: None Reported Past Surgical History: Bariatric Surgery, Orthopedic Surgery, Tonsillectomy Additional Past Surgical History / Comment(s): BILAT CTR, FACIAL RECONSTRUCTION R/T WORK ACCIDENT. EGD Past Anesthesia/Blood Transfusion Reactions: Postoperative Nausea & Vomiting (PONV) Past Psychological History: Anxiety, Depression, Panic Disorder Smoking Status: Current every day smoker Past Alcohol Use History: Occasional Past Drug Use History: None Reported - Past Family History Father Family Medical History: Cancer General Exam Limitations: no limitations General appearance: alert, in no apparent distress Head exam: Present: atraumatic, normocephalic Eye exam: Present: normal appearance. Absent: scleral icterus, conjunctival injection Neck exam: Present: normal inspection Respiratory exam: Present: normal lung sounds bilaterally Cardiovascular Exam: Present: regular rate, normal rhythm, normal heart sounds GI/Abdominal exam: Present: soft. Absent: tenderness, guarding, rebound, organomegaly Neurological exam: Present: alert, normal gait Psychiatric exam: Present: normal affect. Absent: depressed, agitated, homici maverick ideation, suicidal ideation Skin exam: Present: warm, dry, intact, normal color. Absent: rash Course Vital Signs 08/02/18 04:05 Pulse Rate 65 Respiratory 16 Rate Blood Pressure 106/69 O2 Sat by Pulse 97 Oximetry Disposition Clinical Impression: Alcohol intoxication Disposition: HOME SELF-CARE Condition: Good Prescriptions: LORazepam [Ativan] 1 mg PO BID 3 Days #6 tab Is patient prescribed a controlled substance at d/c from ED?: Yes When asked, does pt state using other controlled substances?: No If prescribed controlled substance>3 days was MAPS reviewed?: Prescribed <3 Days If opioid is for acute pain is fill amount 7 days or less?: Yes Referrals: None,Stated [Primary Care Provider] - 1-2 days
[2018-08-02 05:26] VITALS: TEMP 97
[2018-08-02] MEDS ORDERED: LORazepam 1 MG TAB PO STA (05:33)
[2018-08-02 05:49] VITALS: BP 133/85; PULSE 53; RESP 18
== END 2018-08-02 05:29 | disposition home or self-care (01) ==
LOC: EC 04:00
DX: F10.129 Alcohol abuse with intoxication, unspecified (principal); F32.9 Major depressive disorder, single episode, unspecified; F41.0 Panic disorder [episodic paroxysmal anxiety]; F17.200 Nicotine dependence, unspecified, uncomplicated; Z88.8 Allergy status to other drugs, medicaments and biological substances; Z91.013 Allergy to seafood; Z79.899 Other long term (current) drug therapy; Z86.2 Personal history of diseases of the blood and blood-forming organs and certain disorders involving the immune mechanism
CPT/HCPCS: 99283

== ENCOUNTER 2018-08-17 23:39 | Emergency (ER) | payer OTHER ==
[2018-08-18 00:44] LABS: Anisocytosis Slight; Basophils % (A) 0 %; Eosinophils # (A) 0.1 k/uL (0-0.7); Eosinophils % (A) 1 %; HCT 45.5 % (39.0-53.0); HGB 14.2 gm/dL (13.0-17.5); Lymphocytes # (A) 1.1 k/uL (1.0-4.8); Lymphocytes % (A) 12 %; MCHC 31.3 g/dL (31.0-37.0); Mean Platelet Volume 7.2; Monocytes # (A) 0.7 k/uL (0-1.0); Monocytes % (A) 8 %; Neutrophils # (A) 7.2 k/uL (1.3-7.7); Neutrophils % (A) 78 %; Platelet Count 181 k/uL (150-450); RBC 5.49 m/uL (4.30-5.90); RDW 16.7 % (11.5-15.5); WBC 9.3 k/uL (3.8-10.6)
[2018-08-18 00:46] LABS: Albumin 4.5 g/dL (3.5-5.0); Potassium 3.9 mmol/L (3.5-5.1); Total Bilirubin 0.5 mg/dL (0.2-1.3); Total Protein 7.6 g/dL (6.3-8.2)
[2018-08-18 00:54] LABS: D-Dimer 0.32 mg/L FEU (<0.60); INR 0.9 (<1.2); Partial Thromboplastin Time 23.7 sec (22.0-30.0)
--- NOTE | 2018-08-18 00:59 | ED ---
Syncope HPI - General Chief Complaint: Syncope Stated Complaint: Syncope,fall Time Seen by Provider: 08/18/18 00:08 Source: EMS Mode of arrival: EMS Limitations: no limitations - History of Present Illness Initial Comments: Coming by ambulance from the [facility] to be evaluated after he had a syncopal episode. Patient states that he had been sitting having a cigarette this evening. He states that he stood up to go to his room and that he felt lightheaded. A few seconds after that his vision started to go dark and he passed out. Patient states that he woke up on the ground. There were no no bystanders reporting seizure-like activity. No loss continence. No postictal period. The patient states that it does feel like he hit his left elbow and his left hip. He denies any other injury. Patient did not have chest pain. No dyspnea or diaphoresis. No nausea or vomiting. MD Complaint: loss of consciousness -: hour(s) Prodromal Symptoms: vision changes, lightheaded -: second(s) Witnessed: yes - by bystander Injuries Sustained Associated with Event: LUE, LLE Current Symptoms: none Context: standing up Treatments Prior to Arrival: none - Related Data Home Medications Medication Instructions Recorded Confirmed Albuterol Inhaler [Ventolin Hfa 2 puff INHALATION RT-Q6H PRN 06/30/17 07/05/17 Inhaler] Desvenlafaxine Succinate [Pristiq] 100 mg PO DAILY 06/30/17 07/05/17 Ferrous Sulfate [Iron (65 MG 325 mg PO BID 06/30/17 07/05/17 Elemental)] Folic Acid 1 mg PO BID 06/30/17 07/05/17 Multivitamins, Thera [Multivitamin 1 tab PO DAILY 06/30/17 07/05/17 (formulary)] hydrOXYzine PAMOATE [Vistaril] 25 mg PO TID 06/30/17 07/05/17 Previous Rx's Medication Instructions Recorded Aspirin 325 mg PO BID #60 tab 07/08/17 Gabapentin [Neurontin] 400 mg PO TID #20 cap 07/08/17 Mirtazapine [Remeron] 15 mg PO HS #10 tab 07/08/17 Nicotine 21Mg/24Hr Patch [Habitrol] 1 patch TRANSDERM DAILY #30 patch 07/08/17 Sennosides [Senokot] 1 tab PO BID #60 tablet 07/08/17 Zolpidem Tartrate [Ambien] 10 mg PO HS #10 tablet 07/08/17 traMADol HCl [Ultram] 50 mg PO Q6H PRN #60 tab 07/08/17 LORazepam [Ativan] 1 mg PO BID 3 Days #6 tab 08/02/18 Allergies Allergy/AdvReac Type Severity Reaction Status Date / Time shellfish derived [Shrimp] Allergy HIVES, Verified 08/17/18 23:46 SWELLING trazodone AdvReac PRIAPISM Verified 08/17/18 23:46 Review of Systems ROS Statement: Those systems with pertinent positive or pertinent negative responses have been documented in the HPI. ROS Other: All systems not noted in ROS Statement are negative. Constitutional: Denies: fever, weakness Eyes: Denies: vision change Respiratory: Denies: cough, dyspnea Cardiovascular: Reports: syncope. Denies: chest pain, palpitations, orthopnea, edema Gastrointestinal: Denies: abdominal pain, nausea, vomiting Genitourinary: Denies: dysuria, hematuria Musculoskeletal: Denies: back pain Skin: Denies: rash Neurological: Denies: headache, weakness, numbness Past Medical History Past Medical History: Osteoarthritis (OA) Additional Past Medical History / Comment(s): SEASONAL ALLERGIES. LOW IRON History of Any Multi-Drug Resistant Organisms: None Reported Past Surgical History: Bariatric Surgery, Orthopedic Surgery, Tonsillectomy Additional Past Surgical History / Comment(s): BILAT CTR, FACIAL RECONSTRUCTION R/T WORK ACCIDENT. EGD Past Anesthesia/Blood Transfusion Reactions: Postoperative Nausea & Vomiting (PONV) Past Psychological History: Anxiety, Depression, Panic Disorder Smoking Status: Current every day smoker Past Alcohol Use History: Abuse, Daily, Heavy Past Drug Use History: None Reported - Past Family History Father Family Medical History: Cancer General Exam Limitations: no limitations General appearance: alert, in no apparent distress Head exam: Present: atraumatic, normocephalic Eye exam: Present: normal appearance. Absent: scleral icterus, conjunctival injection ENT exam: Present: normal oropharynx Neck exam: Present: normal inspection, full ROM Respiratory exam: Present: normal lung sounds bilaterally. Absent: respiratory distress, wheezes, rales, rhonchi, stridor Cardiovascular Exam: Present: regular rate, normal rhythm, normal heart sounds. Absent: systolic murmur, diastolic murmur, rubs, gallop GI/Abdominal exam: Present: soft. Absent: distended, tenderness, guarding, rebound, mass Extremities exam: Present: normal inspection, normal capillary refill. Absent: pedal edema, calf tenderness Back exam: Present: normal inspection. Absent: CVA tenderness (R), CVA tenderness (L), vertebral tenderness Neurological exam: Present: alert, oriented X3, CN II-XII intact. Absent: motor sensory deficit Skin exam: Present: warm, dry, intact, normal color. Absent: rash Course Vital Signs 08/17/18 08/18/18 08/18/18 23:43 00:00 00:30 Temperature 98.4 F Pulse Rate 82 78 70 Respiratory 18 20 18 Rate Blood Pressure 123/71 123/71 105/76 O2 Sat by Pulse 97 95 98 Oximetry 08/18/18 01:30 Temperature Pulse Rate 74 Respiratory 18 Rate Blood Pressure 133/99 O2 Sat by Pulse 98 Oximetry EKG Findings - EKG Results: EKG: interpreted by SANDY, sinus rhythm (Rate 58 bpm), normal axis, normal QRS EKG shows: bradycardia - Blocks, [place], Hypertrophy, ST Abn: Repolarization changes or abnormalities: nonspecific abnormality, ST segment, and/or T wave Medical Decision Making - Lab Data Result diagrams: 08/18/18 00:25 08/18/18 00:25 Lab Results 08/18/18 08/18/18 08/18/18 Range/Units 00:25 00:25 00:25 WBC 9.3 (3.8-10.6) k/uL RBC 5.49 (4.30-5.90) m/uL Hgb 14.2 (13.0-17.5) gm/dL Hct 45.5 (39.0-53.0) % MCV 83.0 (80.0-100.0) fL MCH 26.0 (25.0-35.0) pg MCHC 31.3 (31.0-37.0) g/dL RDW 16.7 H (11.5-15.5) % Plt Count 181 (150-450) k/uL Neutrophils % 78 % Lymphocytes % 12 % Monocytes % 8 % Eosinophils % 1 % Basophils % 0 % Neutrophils # 7.2 (1.3-7.7) k/uL Lymphocytes # 1.1 (1.0-4.8) k/uL Monocytes # 0.7 (0-1.0) k/uL Eosinophils # 0.1 (0-0.7) k/uL Basophils # 0.0 (0-0.2) k/uL Anisocytosis Slight PT 10.0 (9.0-12.0) sec INR 0.9 (<1.2) APTT 23.7 (22.0-30.0) sec D-Dimer 0.32 (<0.60) mg/L FEU Sodium 136 L (137-145) mmol/L Potassium 3.9 (3.5-5.1) mmol/L Chloride 99 (98-107) mmol/L Carbon Dioxide 28 (22-30) mmol/L Anion Gap 9 mmol/L BUN 14 (9-20) mg/dL Creatinine 1.20 (0.66-1.25) mg/dL Est GFR (CKD-EPI)AfAm 84 (>60 ml/min/1.73 sqM) Est GFR (CKD-EPI)NonAf 72 (>60 ml/min/1.73 sqM) Glucose 128 H (74-99) mg/dL Calcium 9.0 (8.4-10.2) mg/dL Total Bilirubin 0.5 (0.2-1.3) mg/dL AST 48 (17-59) U/L ALT 62 (21-72) U/L Alkaline Phosphatase 85 (38-126) U/L Troponin I (0.000-0.034) ng/mL Total Protein 7.6 (6.3-8.2) g/dL Albumin 4.5 (3.5-5.0) g/dL Urine Color Urine Appearance (Clear) Urine pH (5.0-8.0) Ur Specific [place] (1.001-1.035) Urine Protein (Negative) Urine Glucose (UA) (Negative) Urine Ketones (Negative) Urine Blood (Negative) Urine Nitrite (Negative) Urine Bilirubin (Negative) Urine Urobilinogen (<2.0) mg/dL Ur Leukocyte Esterase (Negative) 08/18/18 08/18/18 08/18/18 Range/Units 00:25 03:10 03:13 WBC (3.8-10.6) k/uL RBC (4.30-5.90) m/uL Hgb (13.0-17.5) gm/dL Hct (39.0-53.0) % MCV (80.0-100.0) fL MCH (25.0-35.0) pg MCHC (31.0-37.0) g/dL RDW (11.5-15.5) % Plt Count (150-450) k/uL Neutrophils % % Lymphocytes % % Monocytes % % Eosinophils % % Basophils % % Neutrophils # (1.3-7.7) k/uL Lymphocytes # (1.0-4.8) k/uL Monocytes # (0-1.0) k/uL Eosinophils # (0-0.7) k/uL Basophils # (0-0.2) k/uL Anisocytosis PT (9.0-12.0) sec INR (<1.2) APTT (22.0-30.0) sec D-Dimer (<0.60) mg/L FEU Sodium (137-145) mmol/L Potassium (3.5-5.1) mmol/L Chloride (98-107) mmol/L Carbon Dioxide (22-30) mmol/L Anion Gap mmol/L BUN (9-20) mg/dL Creatinine (0.66-1.25) mg/dL Est GFR (CKD-EPI)AfAm (>60 ml/min/1.73 sqM) Est GFR (CKD-EPI)NonAf (>60 ml/min/1.73 sqM) Glucose (74-99) mg/dL Calcium (8.4-10.2) mg/dL Total Bilirubin (0.2-1.3) mg/dL AST (17-59) U/L ALT (21-72) U/L Alkaline Phosphatase (38-126) U/L Troponin I <0.012 <0.012 (0.000-0.034) ng/mL Total Protein (6.3-8.2) g/dL Albumin (3.5-5.0) g/dL Urine Color Yellow Urine Appearance Clear (Clear) Urine pH 5.5 (5.0-8.0) Ur Specific [place] 1.010 (1.001-1.035) Urine Protein Negative (Negative) Urine Glucose (UA) Negative (Negative) Urine Ketones Negative (Negative) Urine Blood Negative (Negative) Urine Nitrite Negative (Negative) Urine Bilirubin Negative (Negative) Urine Urobilinogen <2.0 (<2.0) mg/dL Ur Leukocyte Esterase Negative (Negative) Disposition Clinical Impression: Syncope Disposition: HOME SELF-CARE Condition: Good Instructions (If sedation given, give patient instructions): Syncope (ED) Is patient prescribed a controlled substance at d/c from ED?: No Referrals: None,Stated [Primary Care Provider] - 1-2 days
--- NOTE | 2018-08-18 01:38 | XR ---
EXAM: XR Chest, 2 Views CLINICAL HISTORY: ITS.REASON XR Reason: syncope TECHNIQUE: Frontal and lateral views of the chest. COMPARISON: No relevant prior studies available. FINDINGS: Lungs: Unremarkable. No consolidation. Pleural space: Unremarkable. No pneumothorax. Heart: Unremarkable. No cardiomegaly. Mediastinum: Unremarkable. Bones/joints: Unremarkable. IMPRESSION: Normal chest x-rays.
--- NOTE | 2018-08-18 01:45 | XR ---
EXAM: XR Left Elbow Complete, 3 or More Views CLINICAL HISTORY: ITS.REASON XR Reason: trauma TECHNIQUE: Frontal, lateral and oblique views of the left elbow. COMPARISON: No relevant prior studies available. FINDINGS: Bones/joints: Unremarkable. No acute fracture. No dislocation. Soft tissues: Unremarkable. IMPRESSION: Normal left elbow x-rays.
--- NOTE | 2018-08-18 01:46 | XR ---
EXAM: XR Left Hip With Pelvis When Performed, 2 or 3 Views CLINICAL HISTORY: ITS.REASON XR Reason: trauma TECHNIQUE: Two or three views of the left hip, with pelvis when performed. COMPARISON: No relevant prior studies available. FINDINGS: Bones/joints: Unremarkable. No acute fracture. No dislocation. Soft tissues: Unremarkable. IMPRESSION: No acute or healing fracture or malalignment.
[2018-08-18 02:05] VITALS: RESP 18
[2018-08-18] MEDS ORDERED: SODIUM CHLORIDE 0.9% 1,000 ML IV ONE (02:53)
[2018-08-18 03:27] LABS: Appearance,Urine Clear (Clear); Bilirubin,Urine Negative (Negative); Blood,Urine Negative (Negative); Color,Urine Yellow; Glucose,Urine (UA) Negative (Negative); Ketones,Urine Negative (Negative); Leukocyte Esterase,Urine Negative (Negative); Nitrite,Urine Negative (Negative); PH, Urine 5.5 (5.0-8.0); Protein,Urine Negative (Negative); Urobilinogen,Urine <2.0 mg/dL (<2.0)
[2018-08-18 04:17] VITALS: BP 135/92; PULSE 81; TEMP 97.8
== END 2018-08-18 04:38 | disposition home or self-care (01) ==
LOC: EC 23:39
DX: R55 Syncope and collapse (principal); S59.902A Unspecified injury of left elbow, initial encounter; S79.912A Unspecified injury of left hip, initial encounter; F17.210 Nicotine dependence, cigarettes, uncomplicated; F32.9 Major depressive disorder, single episode, unspecified; F41.0 Panic disorder [episodic paroxysmal anxiety]; Z88.8 Allergy status to other drugs, medicaments and biological substances; Z91.013 Allergy to seafood; Z79.899 Other long term (current) drug therapy; W01.0XXA Fall on same level from slipping, tripping and stumbling without subsequent striking against object, initial encounter; Z86.2 Personal history of diseases of the blood and blood-forming organs and certain disorders involving the immune mechanism; Y93.89 Activity, other specified; Y92.199 Unspecified place in other specified residential institution as the place of occurrence of the external cause
CPT/HCPCS: 36415; 71046; 73502; 80053; 81003; 84484; 85025; 85379; 85610; 85730; 93005; 96360; 99284